=== PATIENT | male | born 1985 | race Caucasian/White ===

== ENCOUNTER 2018-05-11 16:59 | Inpatient (IN) | payer OTHER ==
[~2018-05-11] VITALS: Ht 185.4 cm; Wt 84.8 kg
--- NOTE | 2018-05-11 19:45 | NUR ---
PRE-ADMISSION NOTE The patient is a 32 year male, first time pre-assessment done in intake [facility]. Patient is alert and oriented x 4:Person, Situation, Time, and Place, with stable gait, soft clear speech. Patient is verbally appropriate. Patient reports NKA, denies history of withdrawal induced seizures, denies history of Falls, denies history of blackouts, denies history of SI/HI. Patient reports using alcohol/Vodka PO 375 ml every day for one month, after 120 days his sobriety. Last used 375 ml of Vodka today, on 05/11/2018 at 1500". " First drink used in 2009 for fun with friends", and very easy was addicted. Now, he said, "I can't leaving without drinking because if I am not drinking six hours, I am going to sick: my stomach cramps, I have nausea, vomiting, anxiety, nervousness, "I am going feeling dizziness, headache, and body pains". Patient reports, "I am not using other drugs, only Vodka". Patient did not bring home medications. VS: T: 97'2, HR:103,, RR 18, RA O2 SAT: 95%, pain level:"0/10". Patient is a stable for admission. Policy and rules explained to patient. Patient was educated in admission process. Will to continue admission in the unit.
[2018-05-11 19:59] VITALS: BP 127/86
--- NOTE | 2018-05-11 19:59 | NUR ---
ADMISSION NOTE: The patient is a 32 year male, admitted to [facility] on 05/11/2018 at 1959 for Alcohol withdrawal. Patient is alert and oriented x 4: Person, Situation, Time, and Place, with stable gait, soft clear speech. Patient is verbally appropriate. Patient reports NKA, Regular Diet, is on Full Code, is on Fall and Seizures Precautions. Patient denies history of withdrawal induced seizures, denies history of Falls, denies history of blackouts, denies history of SI/HI. Past Medical History: Anxiety, Depression, Ruptured Disk Surgery on 09/2017. PCP: MD Vic. Patient does not have Psychiatrist. Substance use history: 1.Alcohol: Vodka PO : " First drink used in 2009 for fun with friends, and very easy was addicted. Longest sober was since to February, for 120 days. Recently, I am drinking Vodka 375 ml every day for last month. Last used today 375 ml of Vodka at 1500". Patient describe to me his symptoms when he don't use alcohol, verbalized: "I can't live without drinking because if I have not drank, I am going to feel sick with stomach cramps, nausea, vomiting, anxiety, nervousness, dizziness, headache, and body pains". Patient reports, "I am started smoking 3 years ago: 2-3 cigarettes during the day". Patient was educated in smoking cessation. Patient answered why will this time be different?, "I think this time will be different because today I decided came here to detox myself, I did not have any pressure. I came here today on my own, It was my choice, and I did not had agreement with my . I want to stay sober and start be more productive, start working again. I want to back for adjusted for normal healthiest life style, for keep my marriage, for returning to my job, for be good father for my son". Past Substance Abuse Tx History: 1."[facility]", [place], [place], 10/2017 for 1 week". 2."[facility]", [place], [place], 04/2017 for 30 days". UDS test done, blood labs collected. %Ethyl Alcohol level: 0.16*H. Patient did not bring home medications. VS: T: 97'2, HR:103,, RR 18, RA O2 SAT: 95%, pain level: "0/10". Ht: 73 in, Wt: 187 lb.by standing scale. Respirations are even and unlabored. Patient denies SOB and chest pain. Abdomen is soft and non-tender. Last Bowel Movement was 05/10/2018 at AM. Skin check done: skin is intact, warm, and dry, to touch. Dr. Nolasco aware, and order placed. Patient oriented in unit, policy for VS and CIWA assessment every 4 hours, and how used nursing Call light. Patient was encouraged to fluids intake as tolerated, and to attend groups activities. Safe and calm environment provided. All needs met. Safety measures in place: Call light within reach, bed locked in lowest position, padded bed rails up bilaterally. Report received. Will be monitoring closely.
[2018-05-11] MEDS ORDERED: MAGNESIUM HYDROXIDE 30 ML LIQUID UDC PO PRN (21:30)
[2018-05-11] MEDS ORDERED: ONDANSETRON ODT 4 MG TAB.RAPDIS SL PRN (21:30)
[2018-05-11] MEDS ORDERED: LOPERAMIDE HCL 2 MG CAPSULE PO PRN ×2 (21:30)
[2018-05-11] MEDS ORDERED: THIAMINE HCL 200 MG/2 ML VIAL IM ONE (21:30)
[2018-05-11] MEDS ORDERED: LORAZEPAM 1 MG TABLET PO PRN ×2 (21:30)
[2018-05-11] MEDS ORDERED: LORAZEPAM 2 MG/1 ML VIAL IM PRN (21:30)
[2018-05-11] MEDS ORDERED: diphenhydrAMINE 50 MG CAPSULE PO PRN (21:30)
[2018-05-11] MEDS ORDERED: MIRALAX 17 GM POWD.PACK PO PRN (21:30)
[2018-05-11] MEDS ORDERED: MAG HYDROX/AL HYDROX/SIMETH 30 ML LIQUID UDC PO PRN (21:30)
[2018-05-11] MEDS ORDERED: IBUPROFEN 600 MG TABLET PO PRN (21:30)
[2018-05-11 21:42] LABS: BASOPHILS % (AUTO) 0.5 % (0.0-2.0); EOSINOPHILS # (AUTO) 0.1 K/uL (0.0-0.7); EOSINOPHILS % (AUTO) 0.9 % (0.0-7.0); HEMATOCRIT 47.7 % (36.7-47.1); HEMOGLOBIN 16.3 g/dL (12.5-16.3); LYMPHOCYTES # (AUTO) 3.1 K/uL (20.0-40.0); LYMPHOCYTES % (AUTO) 42.3 % (20.5-51.5); MEAN CORPUSCULAR HEMOGLOBIN 32.4 uug (23.8-33.4); MEAN CORPUSCULAR HGB CONC 34 g/dL (32.5-36.3); MEAN CORPUSCULAR VOLUME 94.8 fL (73.0-96.2); MONOCYTES # (AUTO) 0.6 K/uL (2.0-10.0); MONOCYTES % (AUTO) 8.2 % (0.0-11.0); NEUTROPHILS # (AUTO) 3.5 K/uL (1.8-8.9); NEUTROPHILS % (AUTO) 48.1 % (38.5-71.5); PLATELET COUNT (AUTO) 268 K/uL (152-348); RED BLOOD CELL COUNT(AUTO) 5.03 MIL/uL (4.06-5.63); WHITE BLOOD COUNT (AUTO) 7.2 K/uL (3.6-10.2)
[2018-05-11 21:56] LABS: *AMPHETAMINE, URINE NEGATIVE (NEGATIVE); *BARBITURATE, URINE NEGATIVE (NEGATIVE); *CANNABINOID, URINE NEGATIVE (NEGATIVE); *COCCAINE, URINE NEGATIVE (NEGATIVE); *OPIATE, URINE NEGATIVE (NEGATIVE); *PHENCYCLIDINE SCREEN,URINE NEGATIVE (NEGATIVE)
[2018-05-11 21:59] LABS: BILIRUBIN,TOTAL 0.6 mg/dL (0.2-1.0); CREATININE 1.3 mg/dL (0.6-1.3); MAGNESIUM 2.3 mg/dL (1.8-2.4); POTASSIUM 3.9 mmol/L (3.5-5.1)
[2018-05-11] MEDS: FOLIC ACID 1 MG TABLET PO SCH (21:59)
--- NOTE | 2018-05-11 22:00 | NUR ---
PRN BENADRYL 50 MG 1TABLET PO , PRN ZOFRAN (ONDANSETRON 4 MG TAB.RAPDIS) 4 MG 1 TAB.RAPDIS SL ADMINISTRATION PRN Benadryl 50 mg 1 tablet was administered for insomnia at 2159, PRN Zofran 4 mg SL administered for nausea w/o vomiting at 2200, as ordered. Patient tolerated well. Safe and calm environment provided. All needs met. Safety measures in place: Call light within reach, bed locked in lowest position, padded bed rails up x2. Will to reassess in one hour.
[2018-05-11] MEDS: THIAMINE HCL 100 MG TABLET PO SCH (22:01)
[2018-05-11] MEDS: MULTIVITAMINS,THERAPEUTIC TABLET PO SCH (22:05)
[2018-05-11 22:20] LABS: THYROID STIMULATING HORMONE 1.347 mIU/mL (0.358-3.740)
--- NOTE | 2018-05-11 23:00 | NUR ---
PRN RE-ASSESSMENT Patient is sleeping, on his side. RR:14. Respirations are even and unlabored. PRN Benadryl 50 mg 1 tablet was administered for insomnia at 2158, PRN Zofran 4 mg SL administered for nausea w/o vomiting at 0 was effective. Safe and calm environment provided. All needs met. Safety measures in place: Call light within reach, bed locked in lowest position, padded bed rails up bilaterally. Will be continue to monitor closely. Addendum: 05/12/18 at 0543 by JOSE MARIA MUSE RN PRN Benadryl 50 mg 1 tablet was administered for insomnia at 2158, PRN Zofran 4 mg SL administered for nausea w/o vomiting at 2200 were effective.
[2018-05-12] VITALS (8 sets, daily range): BP systolic 104–144; BP diastolic 72–94
--- NOTE | 2018-05-12 | NUR ---
NO WITHDRAWAL SYMPTOMS NOTED.
--- NOTE | 2018-05-12 03:30 | NUR ---
CIWA=12 CIWA=12 at 0330. Patient presented with anxiety, agitation, irritability, nervousness, palpitation, barely sweating, bilateral tremors that can be felt, but not observe, restlessness and fatigue. PRN Medications will be administered, as ordered. Encouraged to fluids intake as tolerated. Safe and calm environment provided. All needs met. Safety measures in place: Call light within reach, bed locked in lowest position, padded bed rails up x2. Will continue to monitor closely.
[2018-05-12] MEDS: CLONIDINE HCL 0.1 MG TABLET PO PRN (03:36)
--- NOTE | 2018-05-12 03:36 | NUR ---
PRN ATIVAN 1 MG 1TABLET PO, PRN CLONIDINE 0.1 MG 1 TABLET PO ADMINISTRATION PRN Ativan 1 mg PO administered for CIWA=12 at 0335, and PRN Clonidine 0.1 mg PO administered for BP 144/94 at 0336. Patient tolerated well. Safe and calm environment provided. All needs met. Safety measures in place: Call light within reach, bed is locked in lowest position, padded bed rails up x2. Will continue to monitor closely.
--- NOTE | 2018-05-12 04:36 | NUR ---
CIWA =10 Patient noted with anxiety, agitation, nervousness, mild headache, generalized body aches, sweating, bilateral tremors that can be felt, not observe, and restlessness. Safe and calm environment provided. All needs met. Safety measures in place: Call light within reach, bed locked in lowest position, padded bed rails up x2. Will continue to monitor closely.
--- NOTE | 2018-05-12 04:36 | NUR ---
PRN RE-ASSESSMENT Patient is reports ,"Medications help to me, my anxiety decreased, and I want to sleep now". CIWA=10. UI=466/86. PRN Ativan 1 mg PO administered for CIWA=12 at 0335, and PRN Clonidine 0.1 mg PO administered for BP 144/94 at 0336 were effective. Safe and calm environment provided. All needs met. Safety measures in place: Call light within reach, bed locked in lowest position, padded bed rails up bilaterally. Will be continue monitoring closely.
--- NOTE | 2018-05-12 07:23 | NUR ---
END OF SHIFT NOTE: The patient is a 32 year male,admitted to [facility] on 05/11/2018 at 1959 for Alcohol withdrawal. Patient is alert and oriented x 4: Person, Situation, Time, and Place, with stable gait, soft clear speech. Patient reports NKA, Regular Diet, is on Full Code, is on Fall and Seizures Precautions. Patient denies history of withdrawal induced seizures, denies history of Falls,denies history of blackouts, denies history of SI/HI. Patient report Past Medical History: Anxiety, Depression, Ruptured Disk Surgery on 09/2017. Patient admitted intoxicated. First withdrawal symptoms noted at 0330. CIWA=12 at 0330. Last CIWA =10 at 0436. Patient presented with anxiety, agitation, nervousness, tremors, that can be felt, not observe, sweating, flashed face, and clammy skin, fatigue, and restlessness. Encouraged to intake fluids, as tolerated. PRN Benadryl 50 mg 1 tablet was administered for insomnia at 2159, PRN Zofran 4 mg SL administered for nausea w/o vomiting at 2200, PRN Ativan 1 mg PO administered for CIWA=12 at 0335, and PRN Clonidine 0.1 mg PO administered for BP 144/94 at 0336, and were effective. Patient slept for 6 hours, intake 725 ml, voided x2. All needs met. Safe and calm environment provide. Safety measures in place. Safety measures in place: Call light within reach, bed locked in lowest position, padded bed rails up bilaterally. Patient endorsed to day shift nurse.
[2018-05-12] MEDS ORDERED: TUBERCULIN,PURIF.PROT.DERIV. 5 TU/0.1 ML TEST ID ONE (09:00)
[2018-05-12] MEDS ORDERED: 5 DAY TAPER OF LORAZEPAM -SERENITY PROTOCOL PO PRN (09:00)
--- NOTE | 2018-05-12 09:00 | NUR ---
Start of Shift Last CIWA 10 at 0436. Pt will start 5 day Ativan taper today. Pt A&Ox4. He appears disheveled, unshaven, room disorganized with multiple water bottles and wrappers scatted over tables and clothes all over room. Pt c/o headache #4/10, moderate anxiety, sweats, chills, fine tremors. He presents with flat affect, depressed mood, and anhedonia. Encouraged Pt to participate in group activities, socialize with others and identify positive coping skills to maintain sobriety. Fall precautions and all safety measures in place. Side rails up x2. Call light functioning and within reach. All needs attended and met. Will continue to assess for withdrawal symptoms.
--- NOTE | 2018-05-12 09:01 | NUR ---
BRITTNEYWA 12- Pt presents with fine tremors, sweats/chills, moderate anxiety, fatigue, headache #4/10, decreased appetite: ate 50% breakfast, and depression.
[2018-05-12] MEDS: THIAMINE HCL 100 MG TABLET PO SCH (09:23)
[2018-05-12] MEDS: HYDROXYZINE PAMOATE 25 MG CAPSULE PO PRN (09:24)
[2018-05-12] MEDS: MULTIVITAMINS,THERAPEUTIC TABLET PO SCH (09:24)
[2018-05-12] MEDS: FOLIC ACID 1 MG TABLET PO SCH (09:24)
--- NOTE | 2018-05-12 09:30 | NUR ---
PRN Vistaril 50 mg PO for moderate anxiety PRN Ibuprofen 600 mg PO for headache #4/10
[2018-05-12] MEDS: LORAZEPAM 1 MG TABLET PO SCH ×4 (10:11→21:59)
--- NOTE | 2018-05-12 10:30 | NUR ---
Reassess Vistaril- Pt reports anxiety improved. He is resting in bed lying supine with eyes closed. Reassess Ibuprofen- Pt reports headache slightly improved, now #2
--- NOTE | 2018-05-12 12:18 | NUR ---
JAVY 12- Pt presents with fatigue and malaise, moderate anxiety, fine tremors, sweats/chills, he is isolative and has anhedonia. Will continue to administer Valium taper per protocol and PRN medications for withdrawal symptoms.
--- NOTE | 2018-05-12 16:05 | NUR ---
CIWA deferred- Pt asleep on his left side. Resp even and unlabored.
--- NOTE | 2018-05-12 16:44 | NUR ---
BRITTNEYWA 12- Pt presents with flushed face, sweats, chills, malaise, anxiety, fine tremors, he remains isolative and has anhedonia. Will continue to administer Valium taper per protocol and PRN medications for withdrawal symptoms.
--- NOTE | 2018-05-12 18:30 | NUR ---
End of Shift Last CIWA 12 at 1645. Pt started on 5 day Ativan taper today. Pt A&Ox4. He is isolative, has flat affect, depressed mood, is disheveled, odorous and unshaven. Encouraged Pt to shower today, he did not feel up to it. Withdrawal symptoms include flushed face, fatigue, moderate anxiety, sweats, chills, fine tremors, headache, poor appetite, and anhedonia. PRNs given today; Vistaril and Motrin. Encouraged Pt to participate in group activities, socialize with others and identify positive coping skills to maintain sobriety. Pt did not feel well enough today to go to group therapy. PO fluids 1835 ml, Voids X2, no BM. Fall precautions and all safety measures in place. Side rails up x2. Call light functioning and within reach. All needs attended and met. Will continue to assess for withdrawal symptoms. Endorsed to PM shift.
--- NOTE | 2018-05-12 19:15 | NUR ---
Start Of Shift Patient is a 32 yr old male who was admitted to [facility] on 05/11 for a medically supervised withdrawal from ETOH ( Vodka), he has been placed on 5 day Ativan taper and this is day 1. No PRN medication was requested or required on day shift. Currently the patient is in bed asleep, side rails up x2, breathing even and regular. Continue to follow MD plan of care and offer support and encouragement.
--- NOTE | 2018-05-12 22:00 | NUR ---
CIWA 11 Patient presents with bilateral hand tremors, increased anxiety, lethargy, flushed face. Scheduled 2mg PO Ativan given
--- NOTE | 2018-05-13 | NUR ---
CIWA deferred for sleep
[2018-05-13] MEDS: HYDROXYZINE PAMOATE 25 MG CAPSULE PO PRN (02:56)
[2018-05-13] MEDS: CLONIDINE HCL 0.1 MG TABLET PO PRN ×2 (02:56→21:11)
--- NOTE | 2018-05-13 03:00 | NUR ---
PRN Vistaril 50mg PO and Clonidine 0.1mg PO given for increased anxiety and disturbed sleep
[2018-05-13 04:00] VITALS: BP 137/87
--- NOTE | 2018-05-13 04:00 | NUR ---
PRN Reassess Patient asleep in bed, breathing even, call light within reach
--- NOTE | 2018-05-13 04:00 | NUR ---
CIWA 11 Patient presents with bilateral hand tremors, increased anxiety, interrupted sleep, flushed face.
--- NOTE | 2018-05-13 06:53 | NUR ---
End Of Shift Patient is a 32 yr old male who was admitted to [facility] on 05/11 for a medically supervised withdrawal from ETOH ( Vodka), he has been placed on 5 day Ativan taper and this is day 2. PRN medication given on this shift: Vistaril and Clonidine. Patient presents with lethargy, broken sleep, flushed face, diaphoresis and chills. He had a fluid intake of 1000ml, 2 voids and 0 BM, he slept for 6 hours and last CIWA was 11 @ 0400. Currently the patient is in bed asleep, side rails up x2, breathing even and regular. Continue to follow MD plan of care and offer support and encouragement. Endorsed to day shift nurse.
--- NOTE | 2018-05-13 07:42 | NUR ---
Start of Shift Received report from operation shift supervisor. Upon start of shift Pt was in room watching TV eating chips. Last CIWA 11 at 0400. Pt on 5 day Ativan taper(day 2). Pt A&Ox4. He is isolative, has poor eye contact, has flat affect, depressed mood, is disheveled, and unshaven. Encouraged Pt to shower today. Withdrawal symptoms include malaise, anxiety, chills, fine tremors, flushed face, and anhedonia. Pt slept 6 hours last night. Encouraged Pt to participate in group activities, socialize with others and identify positive coping skills to maintain sobriety. Fall precautions and all safety measures in place. Side rails up x2. Call light functioning and within reach. All needs attended and met. Will continue to assess for withdrawal symptoms.
[2018-05-13 08:00] VITALS: BP 140/81
--- NOTE | 2018-05-13 08:05 | NUR ---
[facility] 12- Pt c/o malaise, moderate anxiety, agitation, restless legs, chills, fine tremors, flushed face, and anhedonia.
[2018-05-13] MEDS: FOLIC ACID 1 MG TABLET PO SCH (08:35)
[2018-05-13] MEDS: THIAMINE HCL 100 MG TABLET PO SCH (08:35)
[2018-05-13] MEDS: LORAZEPAM 1 MG TABLET PO SCH ×3 (08:35→20:24)
[2018-05-13] MEDS: MULTIVITAMINS,THERAPEUTIC TABLET PO SCH (08:36)
[2018-05-13 11:06] LABS: HEPATITIS B SURFACE AG Negative (Negative)
[2018-05-13 12:00] VITALS: BP 133/85
--- NOTE | 2018-05-13 12:10 | NUR ---
CIWA 12- Pt presents with moderate anxiety, agitation, fatigue, chills, and fine tremors. Pt has avoidant eye contact, with isolative/withdrawn and has anhedonia.
--- NOTE | 2018-05-13 13:03 | NUR ---
Therapist prompted client to attend group therapy.
[2018-05-13 16:00] VITALS: BP 136/83
--- NOTE | 2018-05-13 16:17 | NUR ---
WA 12- Pt exhibits anhedonia, moderate anxiety, malaise, chills, and fine tremors. Pt remains isolative and withdrawn. Encouraged him to attend group therapy, but he is not felling well enough to attend.
--- NOTE | 2018-05-13 18:44 | NUR ---
End of Shift Last CIWA 12 at 1600. Pt continues on 5 day Ativan taper(day 2). Pt A&Ox4. He is isolative, withdrawn, guarded, avoidant eye contact, has flat affect, flat affect, depressed mood, disheveled, and unshaven. Pt c/o malaise, anxiety, chills, fine tremors, he has flushed face, and anhedonia. No PRN given today. Encouraged Pt to participate in group activities, socialize with others and identify positive coping skills to maintain sobriety. PO fluids 1500ml, voids x2, BMx1. Fall precautions and all safety measures in place. Side rails up x2. Call light functioning and within reach. All needs attended and met. Will continue to assess for withdrawal symptoms. Endorsed to PM shift.
--- NOTE | 2018-05-13 19:15 | NUR ---
Start Of Shift: Patient is a 32 yr old male who was admitted to [facility] on 05/11/18 for a medically supervised withdrawal from ETOH ( Vodka), he has been placed on a 5 day Ativan taper and this is day 2. No PRN medications were required or requested on day shift, last CIWA was 12 @1600. Per report he has been isolative to his room most of the day. At this time he is asleep in bed with eyes closed, breathing even. Continue to follow MD plan of care and offer support and encouragement.
[2018-05-13 20:00] VITALS: BP 145/87
[2018-05-13] MEDS: TRAZODONE 50 MG TABLET PO PRN (20:24)
--- NOTE | 2018-05-13 20:25 | NUR ---
PRN Trazodone 50mg PO given per request for sleep, will reassess
--- NOTE | 2018-05-13 21:11 | NUR ---
PRN Clonidine 0.1mg PO given for reports of increased agitation and anxiety, will reassess
--- NOTE | 2018-05-13 21:25 | NUR ---
PRN Reassess Patient states that he is feeling drowsy and ready to go to sleep, continue to monitor
--- NOTE | 2018-05-13 21:30 | NUR ---
CIWA 13 patient presents with anhedonia, lethargy,restlessness, diaphoresis, decreased appetite and increased anxiety and irritability. Scheduled 2mg Ativan PO given and PRN trazodone and Clonidine.
--- NOTE | 2018-05-13 22:11 | NUR ---
PRN Reassess patient is asleep in bed , breathing even and unlabored, side rails up x2, call light within reach
--- NOTE | 2018-05-14 | NUR ---
CIWA CIWA deferred due to sleep. Vitals refused per patient request to be able to sleep uninterrupted through the night. Breathing even and unlabored , RR14, call light within reach
[2018-05-14] MEDS: HYDROXYZINE PAMOATE 25 MG CAPSULE PO PRN (02:27)
[2018-05-14 02:30] VITALS: BP 140/102
--- NOTE | 2018-05-14 02:30 | NUR ---
PRN Vistaril 50mg PO given for reports of inability to stay asleep and anxiety. Clonidine 0.1mg PO given for anxiety and BP 140/102 will reassess
--- NOTE | 2018-05-14 02:30 | NUR ---
CIWA 13 Patient presents with increased blood pressure, 140/102, inability to stay asleep, increased anxiety, diaphoresis and racing thoughts. PRN Vistaril 50mg PO and Clonidine 0.1mg PO given
[2018-05-14] MEDS: CLONIDINE HCL 0.1 MG TABLET PO PRN (02:31)
--- NOTE | 2018-05-14 03:30 | NUR ---
PRN Reassess BP 136/87 , Patient is sleeping Vistaril and Clonidine effective
[2018-05-14 04:00] VITALS: BP 138/87
--- NOTE | 2018-05-14 04:00 | NUR ---
CIWA CIWA deferred, patient is asleep at this time.
--- NOTE | 2018-05-14 06:42 | NUR ---
End Of Shift Patient is a 32 yr old male who was admitted to [facility] on 05/11 for a medically supervised withdrawal from ETOH ( Vodka), he has been placed on 5 day Ativan taper and this is day 3. PRN medication given on this shift: Trazodone, Vistaril and Clonidine x2. Patient presents with lethargy, broken sleep, flushed face, increased anxiety, increased blood pressure, diaphoresis and chills. He had a fluid intake of 500ml, 1 voids and 0 BM, he slept for 7 hours and last CIWA was 13 @ 0230. Currently the patient is in bed asleep, side rails up x2, breathing even and regular. Continue to follow MD plan of care and offer support and encouragement. Endorsed to day shift nurse.
--- NOTE | 2018-05-14 07:40 | NUR ---
START OF SHIFT NOTE Received report from night nurse, 32 year old male admitted for ETOH withdrawal. Patient continues with her 5 days Ativan taper tolerating-p0 well. Per endorsement patient was given PRN Trazodone,Clonidine x2, Vistaril, effective per night nurse, slept for 7 hours and last CIWA was-13. Received patient alert awake oriented x4, presented with labile facial expression,anxious, agitated, restless, patient is due for schedule medications. Skin intact warm and dry to touch. No s/s of distress noted. All safety measures in place. Will cont with plan of care.
[2018-05-14 07:41] LABS: BILIRUBIN,DIRECT 0.1 mg/dL (0.0-0.2); BILIRUBIN,TOTAL 0.3 mg/dL (0.2-1.0); TOTAL PROTEIN, SERUM 6.6 g/dL (6.4-8.2)
[2018-05-14 08:00] VITALS: BP 139/99
[2018-05-14] MEDS: FOLIC ACID 1 MG TABLET PO SCH (08:18)
[2018-05-14] MEDS: THIAMINE HCL 100 MG TABLET PO SCH (08:18)
[2018-05-14] MEDS: LORAZEPAM 1 MG TABLET PO SCH ×4 (08:18→21:38)
[2018-05-14] MEDS: MULTIVITAMINS,THERAPEUTIC TABLET PO SCH (08:18)
--- NOTE | 2018-05-14 08:18 | NUR ---
CIWA ASSESSMENT CIWA score noted -12. Patient presented with labile facial expression and stated increased in anxiety, agitation, restless, anhedonia, irritability, diaphoresis, bilateral hand tremors. Patient was given his scheduled medications. All safety measures in place.
[2018-05-14 12:00] VITALS: BP 133/90
--- NOTE | 2018-05-14 12:00 | NUR ---
CIWA ASSESSMENT CIWA score noted -11. Patient continues to exhibits s/s of withdrawal such as anxiety, agitation, restless, anhedonia, irritability, diaphoresis, bilateral hand tremors. Patient was given his schedule medications. All safety measures in place.
--- NOTE | 2018-05-14 12:11 | NUR ---
Therapist prompted client to attend all group therapy sessions.
[2018-05-14 16:00] VITALS: BP 150/99
--- NOTE | 2018-05-14 16:40 | NUR ---
CIWA ASSESSMENT CIWA score noted -13. Patient continues to exhibits s/s of withdrawal such as labile facial expression, fatigue, dysphoria, increased pulse, anxiety, agitation, restless, bilateral hand tremors. Patient was given his schedule medications. All safety measures in place.
--- NOTE | 2018-05-14 19:22 | NUR ---
END OF SHIFT NOTE Gave report to night nurse, 32 year old male admitted for ETOH withdrawal. Patient continues on Ativan taper tolerating well. Patient presented with blunt facial expression, diaphoresis, anhedonia, anxiety, agitation, restless, fatigue, light headed, sweats, bilateral hand tremors. Patient was given scheduled medications. Patient did not request for any PRN'S. Patient denies any SI/HI. Vital signs WNL. Patient noted attending groups and activities. Encourage PO fluids as tolerated. Last CIWA score was -13. All safety measures in place, call light within reach. Patient endorse to night nurse in stable condition.
[2018-05-14 20:00] VITALS: BP 129/84
--- NOTE | 2018-05-14 20:00 | NUR ---
Start of Shift Patient observed to be melancholic and in depressed mood, verbalized feeling "tired". Patient noted to be increasingly anxious, with anhedonia, mild nausea, flushed and moist skin on face and with bilateral hand tremors. Patient on 5-day Ativan taper, to continue. With PRN meds for withdrawal symptoms. Fall, universal, seizure and safety prec in place. Call light within reach. Latest CIWA=11. Will continue to monitor.
[2018-05-14] MEDS: TRAZODONE 50 MG TABLET PO PRN (21:40)
--- NOTE | 2018-05-14 21:41 | NUR ---
PRN Trazodone Patient verbalized "I cannot sleep." Trazodone 50 mg PO PRN administered as ordered. Will reassess.
--- NOTE | 2018-05-14 22:41 | NUR ---
Trazodone reassess Patient asleep on bed, no facial grimacing nor SOB noted.
[2018-05-15] VITALS (7 sets, daily range): BP systolic 107–146; BP diastolic 65–97
[2018-05-15] MEDS: CLONIDINE HCL 0.1 MG TABLET PO PRN ×2 (02:04→20:18)
[2018-05-15] MEDS: HYDROXYZINE PAMOATE 25 MG CAPSULE PO PRN (02:04)
--- NOTE | 2018-05-15 02:05 | NUR ---
PRN Clonidine and Vistaril Patient c/o increasing anxiety and observed to be easily agitated. JF=033/91, pulse=93. Administered Clonidine 0.1 mg PO PRN and Vistaril 50 mg PO PRN. Will reassess.
--- NOTE | 2018-05-15 03:05 | NUR ---
Clonidine and Vistaril reassess Patient asleep on bed, with no facial grimacing nor SOB noted.
--- NOTE | 2018-05-15 04:00 | NUR ---
CIWA=8 Patient with intermittent anxiety, tremors and appears flushed. Patient continues to c/o "fatigue". Will continue to monitor.
--- NOTE | 2018-05-15 07:25 | NUR ---
End of Shift Patient continues to present with anhedonia and appears melancholic and isolative. Patient continues to be flushed, with sweating and tremors. Encouraged patient to take a shower this morning as he is disheveled and unkempt. Fall, universal, seizure and safety prec in place. Call light within reach. Latest CIWA=8 and slept for 8 hours. Endorsed to AM shift nurse for continuity of care.
--- NOTE | 2018-05-15 07:59 | NUR ---
START OF SHIFT NOTE Received report from night nurse, 32 year old male admitted for ETOH withdrawal. Patient continues with her 5 days Ativan taper tolerating-p0 well. Per endorsement patient was given PRN Clonidine, Vistaril, effective per night nurse, slept for 8 hours and last CIWA was-8. Received patient alert awake oriented x4, patient reported feeling anxious and wanted to go for smoking. patient is due for schedule medications. Skin intact warm and dry to touch. No s/s of distress noted. All safety measures in place. Will cont with plan of care.
[2018-05-15] MEDS: FOLIC ACID 1 MG TABLET PO SCH (08:13)
[2018-05-15] MEDS: LORAZEPAM 1 MG TABLET PO SCH ×3 (08:13→20:17)
[2018-05-15] MEDS: MULTIVITAMINS,THERAPEUTIC TABLET PO SCH (08:13)
[2018-05-15] MEDS: THIAMINE HCL 100 MG TABLET PO SCH (08:13)
--- NOTE | 2018-05-15 08:13 | NUR ---
CIWA ASSESSMENT CIWA score noted -13. Patient presented with labile facial expression, unkempt, anxious, agitated, restless, anhedonia, irritability, diaphoresis, bilateral hand tremors. Patient was given his scheduled medications. All safety measures in place.
--- NOTE | 2018-05-15 08:51 | NUR ---
Therapist prompted client to attend group therapy.
--- NOTE | 2018-05-15 14:00 | NUR ---
CIWA ASSESSMENT CIWA score noted -12. Patient continues to exhibits s/s of withdrawal such as sad facial expression, anxiety, agitation, restless, irritability, diaphoresis, bilateral hand tremors. Patient was given his schedule medications. All safety measures in place.
--- NOTE | 2018-05-15 16:00 | NUR ---
CIWA ASSESSMENT CIWA score noted -11. Patient reported s/s of withdrawal such as anxiety, agitation, restless, irritability, sweats, bilateral hand tremors. All safety measures in place.
--- NOTE | 2018-05-15 19:14 | NUR ---
END OF SHIFT NOTE Gave report to night nurse, Patient admitted for ETOH withdrawal and continues with his Ativan taper tolerating well. Patient received his scheduled medications patient did not request for any PRN medications. Patient presented with flushed face, avoidant eye contact, anhedonia, anxiety, agitation, restless, fatigue, bilateral hand tremors. Patient noted attending groups activities and interacting with peers. Patient was encouraged adequate PO fluid intake as tolerated, patient encouraged to develop coping skills and utilization of non pharmacological interventions. Encouraged patient to participates in groups activities. Vital signs WNL. Patient denies any SI/HI. All needs attended. Endorse care to night nurse.
--- NOTE | 2018-05-15 20:00 | NUR ---
Start of Shift Patient verbalized missing his and son. Patient continues to be melancholic and in depressed mood. Patient is avoiding conversation and presents with anhedonia. Patient with anxiety, flushed and moist skin on face and with bilateral hand tremors. Patient continues to be on a 5-day Ativan taper. Provided education on Progressive Muscle Relaxation. Fall, universal, seizure and safety prec in place. Call light within reach. Latest CIWA=10. Will continue to monitor.
[2018-05-15] MEDS: TRAZODONE 50 MG TABLET PO PRN (20:17)
--- NOTE | 2018-05-15 20:19 | NUR ---
PRN Clonidine and Trazodone Patient with elevated UR=196/97 and c/o inability to sleep. Administered Clonidine 0.1 mg PO PRN and Trazodone 50 mg PO PRN. Will reassess.
--- NOTE | 2018-05-15 21:20 | NUR ---
Clonidine and Trazodone reassess Patient's BP iygxonp=335/62, Pulse=72. Patient is on bed and verbalized feeling sleepy now.
[2018-05-16] VITALS: BP 111/64
--- NOTE | 2018-05-16 | NUR ---
CIWA=9 Patient continues to present with anhedonia and avoiding conversation. Patient c/o feeling tired, with tremors and intermittent anxiety. Also, patient with hypoactive body movement.
--- NOTE | 2018-05-16 | NUR ---
CIWA CIWA deferred. Pt laying in bed eyes closed and resting. Continue to monitor.
[2018-05-16] MEDS: HYDROXYZINE PAMOATE 25 MG CAPSULE PO PRN ×3 (01:48→17:57)
--- NOTE | 2018-05-16 01:49 | NUR ---
PRN Vistaril Patient woke up and c/o feeling increasingly anxious. Administered Vistaril 50 mg PO PRN. Will reassess.
--- NOTE | 2018-05-16 02:50 | NUR ---
Vistaril reassess Patient verbalized feeling less anxious and would want to continue his sleep.
[2018-05-16 04:00] VITALS: BP 129/84
--- NOTE | 2018-05-16 04:00 | NUR ---
CIWA=9 Patient continues to have intermittent anxiety, with anhedonia and hypotensive movement. Patient with flushed skin.
[2018-05-16] MEDS: CLONIDINE HCL 0.1 MG TABLET PO PRN ×3 (04:34→17:57)
--- NOTE | 2018-05-16 04:35 | NUR ---
PRN Clonidine Patient c/o increasing anxiety, easily gets agitated and with tremors. Administered Clonidine 0.1 mg PO PRN. Will reassess.
--- NOTE | 2018-05-16 05:35 | NUR ---
Clonidine reassess Patient verbalized that anxiety level has decreased.
--- NOTE | 2018-05-16 07:15 | NUR ---
End of Shift Patient continues to be melancholic and keeps to himself. Patient continues to have intermittent anxiety and with sweating and tremors. Patient verbalized experiencing "some sort of cravings" from time to time. Fall, universal, seizure and safety prec in place. Call light within reach. Latest CIWA=9 and slept for 8 hours. Endorsed to AM shift nurse for continuity of care.
--- NOTE | 2018-05-16 07:30 | NUR ---
Start Of Shift: Patient is a 32 yr old male who was admitted to [facility] on 05/11/18 for a medically supervised withdrawal from ETOH ( Vodka), he has been placed on a 5 day Ativan taper and this is day 5. PRN medications given on shift : Clonidine x2, Vistaril and Trazodone, last CIWA was 9 and he slept for 8 hrs. Per report he has been isolative to his room most of the time. At this time he is in bed awake and voices that he has no withdrawal symptoms and would like to leave to go home today, will pass request to case management associate. Continue to follow MD plan of care and offer support and encouragement.
[2018-05-16 08:00] VITALS: BP 109/71
--- NOTE | 2018-05-16 08:00 | NUR ---
CIWA 10 Withdrawal symptoms present as warm clammy skin, increased anxiety, interrupted sleep, he has a sad flat depressed affect. Schedule Ativan 1mg PO to be given.
[2018-05-16] MEDS: MULTIVITAMINS,THERAPEUTIC TABLET PO SCH (08:31)
[2018-05-16] MEDS: THIAMINE HCL 100 MG TABLET PO SCH (08:31)
[2018-05-16] MEDS: FOLIC ACID 1 MG TABLET PO SCH (08:31)
[2018-05-16] MEDS: LORAZEPAM 1 MG TABLET PO SCH ×2 (08:31→21:50)
[2018-05-16 12:00] VITALS: BP 134/91
--- NOTE | 2018-05-16 12:00 | NUR ---
CIWA 10 Withdrawal symptoms present as warm clammy skin, increased anxiety, increased heart rate ( 118), he has a sad flat depressed affect. PRN Clonidine and Vistaril will be given
--- NOTE | 2018-05-16 12:16 | NUR ---
PRN Vistaril 50mg PO and Clonidine 0.1mg PO given for increased anxiety/agitation will reassess
--- NOTE | 2018-05-16 12:20 | NUR ---
Therapist prompted client to attend all group therapy sessions.
--- NOTE | 2018-05-16 13:15 | NUR ---
PRN Reassess HR 90, patient states he feels less anxious, PRN Vistaril and Clonidine effective
[2018-05-16 16:00] VITALS: BP 140/90
--- NOTE | 2018-05-16 16:00 | NUR ---
CIWA 11 Withdrawal symptoms present as warm clammy skin, increased anxiety, increased BP, intermittent tachycardia, he has a sad flat depressed affect.
--- NOTE | 2018-05-16 19:40 | NUR ---
Start of Shift Note Received 32 year old male admitted to [facility] for medically supervised withdrawal from ETOH on 05/11/18. Pt on day 5 of a 5 day Ativan taper. Per endorsement, pt seen and evaluated by MD received orders for Trazodone to be discontinued and will start Seroquel 50mg. Pt received PRN Clonidine X 2 and Vistaril X2. Last CIWA 11 @1600. Pt is awake, alert, flat affect, withdrawn, flushed and states he is anxious, verbalizes he would like to go home and he misses his . Safety measures in use. Will continue to monitor.
--- NOTE | 2018-05-16 19:41 | NUR ---
End Of Shift : Patient is a 32 yr old male who was admitted to [facility] on 05/11/18 for a medically supervised withdrawal from ETOH ( Vodka ), he has been placed on a 5 day Ativan taper and today is day 5. Patient is isolative to his room but has attended groups today, his withdrawal symptoms include Tachycardia , intermittent hypertension, increased anxiety and Anhedonia, he has a sad depressed affect. PRN medications given on this shift: Clonidine 0.1mg PO x2 and Vistaril 50mg PO x2 for anxiety/agitation. He had a fluid intake of 2100ML, 4 Voids and 1 BM and his last CIWA was 11 @ 1600. Continue to follow MD plan of care and offer support as needed. Endorsed to restaurant shift leader nurse.
[2018-05-16 20:08] VITALS: BP 130/79
[2018-05-16] MEDS: QUETIAPINE FUMARATE 25 MG TABLET PO PRN (21:50)
--- NOTE | 2018-05-16 21:50 | NUR ---
PRN Seroquel Pt complains of difficulty sleeping. Requested Seroquel. Medication given per MD order. Continue with safety measures and will assess effectiveness.l
--- NOTE | 2018-05-16 22:50 | NUR ---
PRN Seroquel Reassess Pt laying in bed resting with eyes closed. Respirations even and unlabored. Safety measures in use. Will continue to monitor.
--- NOTE | 2018-05-17 | NUR ---
Vitals Refused patient is noted in bed sleeping. Breathing even and non labored. vitals refused. CIWA not able to be completed as per order. no restlessness or facial grimacing noted. Will continue to monitor.
[2018-05-17 01:25] VITALS: BP 110/78
[2018-05-17] MEDS: HYDROXYZINE PAMOATE 25 MG CAPSULE PO PRN ×3 (01:30→20:51)
[2018-05-17] MEDS: CLONIDINE HCL 0.1 MG TABLET PO PRN ×2 (01:30→12:22)
--- NOTE | 2018-05-17 01:31 | NUR ---
PRN medication Administration Patient is noted awake and verbalizing increased chills, sweats, anxiety, restlessness and agitation. PRN Clonidine and Vistaril administered. Will continue to monitor.
--- NOTE | 2018-05-17 02:30 | NUR ---
PRN Medication Reassessment Patient is noted in bed sleeping. Breathing even and non labored. No restlessness or facial grimacing noted. patient received PRN Clonidine and Vistaril noted to be effective. Will continue to monitor.
--- NOTE | 2018-05-17 04:00 | NUR ---
Vitals Refused Patient is noted in bed sleeping. Breathing even and non labored. Vitals refused. CIWA not able to be completed as per order. No restlessness or facial grimacing noted.
--- NOTE | 2018-05-17 06:29 | NUR ---
End of Shift Note Pt is 32 year old male admitted to [facility] for medically supervised withdrawal from ETOH on 05/11/18. Pt completed 5 day Ativan taper. Pt continued with flat affect, withdrawn, isolative, flushed and states he is anxious. Pt complained of difficulty sleeping and requested PRN Seroquel. Dose given per MD order with positive effect. CIWA 8 @2000. Intake of 946 ml, voided x 3, BM X 0, and slept X 8 hours. Safety measures in use. Endorsed care to day shift.
--- NOTE | 2018-05-17 07:30 | NUR ---
START OF SHIFT Pt 32 y/o male admitted for etoh withdrawal. Pt received in room on bed with eyes closed resting. Alert and oriented to name, place, and time. P[place]. Skin warm and moist to touch. Respirations even and unlabored. Appears disheveled and unkempt. Clothes scattered throughout the room. Encouraged to maintain hygiene. Anxious and restless. pressured speech. Bilateral hand tremors. Complaints of generalized discomfort. It was reported that pt slept for 7 hours last night. Last ciwa=8 @1999. Pt completed a 5 day ativan taper. Bed on lowest position with side rails x2 up for safety. Call light within reach.
[2018-05-17 08:00] VITALS: BP 120/82
--- NOTE | 2018-05-17 08:00 | NUR ---
CIWA ASSESSMENT ciwa=10. Anxious and restless. Pressured speech noted. Bilateral hand tremors. Short abrupt responses. Easily irritable and agitated this morning.
[2018-05-17] MEDS: THIAMINE HCL 100 MG TABLET PO SCH (08:52)
[2018-05-17] MEDS: MULTIVITAMINS,THERAPEUTIC TABLET PO SCH (08:52)
[2018-05-17] MEDS: FOLIC ACID 1 MG TABLET PO SCH (08:52)
--- NOTE | 2018-05-17 09:40 | NUR ---
PRN VISTARIL Pt states feels anxious. Restless and irritable. Short abrupt responses. Vistaril po prn per MD order given and tolerated well.
--- NOTE | 2018-05-17 10:33 | NUR ---
ENDORSEMENT pt endorsed to nurse. All information given.
--- NOTE | 2018-05-17 10:35 | NUR ---
Rcvd endorse from am nurse for continuity of care. client is in room, a/o x 4. Client completed 5 yanick Ativan taper. Last CIWA 10 @ 0800. PRN Vistaril 50mg Po for anxiety, noted effective. Encourage client to attend group therapy to learn skills to maintain sober. Call light within reach.
[2018-05-17 12:17] VITALS: BP 139/92
--- NOTE | 2018-05-17 12:22 | NUR ---
CIWA 7 Client presents with agitation and anxiety mb increased BP 139/92 P 94. PRN Clonidine 0.1mg PO administered. Call light within reach.
[2018-05-17] MEDS ORDERED: QUET25TA PO (13:13)
[2018-05-17] MEDS ORDERED: CLON0.1T14 PO (13:13)
[2018-05-17] MEDS ORDERED: HYDR-3895 PO (13:13)
--- NOTE | 2018-05-17 13:22 | NUR ---
Reassess PRN Clonidine 0.1mg, client reports feeling less agitated and less anxious BP 125/84 P 87.
[2018-05-17 16:00] VITALS: BP 129/83
--- NOTE | 2018-05-17 16:10 | NUR ---
CIWA 6 Client continues to present with anxiety and agitation. Client refused PRN medication at this time. Call light within reach.
--- NOTE | 2018-05-17 19:20 | NUR ---
END OF SHIFT Endorse client to incoming nurse, client is in room, a/o x 4. Client continues to present with anxiety, decreased appetite, and fatigue. Last CIWA 6 @ 1600. Client completed 5 day Ativan paper. Adequate PO fluid intake 3600mL, void x 5, stool x 2. Encouragement needed to attend group therapy. Consumes 75% of meals. Call light within reach.
--- NOTE | 2018-05-17 19:30 | NUR ---
Start of Shift Patient Received. Patient is noted in his bed, awake, alert and verbally responsive. Breathing even and non labored. Per endorsement, patient has completed a 5 day Ativan taper and is set for discharge tomorrow 05/18/18. Patient was noted to be isolative to room and only participating in smoking breaks. Patient received PRN Vistaril and Clonidine with medication noted to be effective. Last noted CIWA 6. Upon rounds, patient is noted to be isolative, disheveled, flat, with depressed affect. All needs attended to promptly. Will continue plan of care as ordered.
[2018-05-17 20:00] VITALS: BP 126/72
--- NOTE | 2018-05-17 20:55 | NUR ---
PRN Medication Administration Patient is verbalizing increased anxiety and verbalizes "Im just really excited to see my ." PRN Vistaril administered. Will continue to monitor.
--- NOTE | 2018-05-17 21:50 | NUR ---
PRN Medication Reassessment Patient is noted awake and returning from smoke patio. Patient is able to verbalize medication was effective in minimizing anxiety. PRN Vistaril noted effective. Will continue to monitor.
[2018-05-17] MEDS: QUETIAPINE FUMARATE 25 MG TABLET PO PRN (23:23)
--- NOTE | 2018-05-17 23:23 | NUR ---
PRN Medication Administration Patient is noted verbalizing inability of falling asleep. PRN Seroquel administered. Will continue to monitor.
--- NOTE | 2018-05-18 00:30 | NUR ---
PRN Medication Reassessment patient is noted in bed with eyes closed. Breathing even and non labored. No signs of restlessness or discomfort noted. Patient received PRN Seroquel for sleep with medication noted effective. Vitals refused. CIWA not able to be completed as per order. Will continue to monitor. Addendum: 05/18/18 at 0051 by MODESTA PA LVN Vitals Refused
--- NOTE | 2018-05-18 04:00 | NUR ---
Vitals Refused Patient is noted in bed sleeping. Breathing even and non labored. No restlessness or discomfort noted. Patient refused vitals. CIWA not able to be completed as per order. All needs attended to promptly. Will continue plan of care as ordered.
--- NOTE | 2018-05-18 07:07 | NUR ---
End of Shift Patient is in bed sleeping, but easily arouse to verbal stimuli. Breathing even and non labored. Patient has completed a 5 day Ativan taper and is set for discharge today 05/18/18. Patient received PRN Vistaril and Seroquel with medication noted to be effective. Last noted CIWA 4. Patient noted to sleep a total of 7 hours. All needs attended to promptly. Will continue plan of care as ordered.
--- NOTE | 2018-05-18 07:35 | NUR ---
START OF SHIFT Endorse rcvd from ongoing nurse, client is in bed, lying on his L side, a/o x 4. Client reports feeling somewhat anxious and agitated because of his discharge this morning to [facility]. Discuss discharge instructions with client, he verbalized understanding. Client was admitted to [facility] for alcohol withdrawal. He completed 5 day Ativan taper. Last CIWA 4 @ 1999. PRN Vistaril 50mg PO for anxiety, Seroquel 50mg PO for sleep, client slept 7 hrs. Seizure precautions rendered. Call light within reach.
[2018-05-18 08:07] VITALS: BP 124/88
[2018-05-18] MEDS: MULTIVITAMINS,THERAPEUTIC TABLET PO SCH (08:55)
--- NOTE | 2018-05-18 08:55 | NUR ---
PRN Clonidine 0.1mg for agitation and Vistaril 50mg PO for anxiety. Client presents with anxious mood, flat affect. He stated, "I am just anxious because I have to start all over again with my program and I do not want to stay away from my and 5 year old kid any longer." Call light within reach.
[2018-05-18 08:56] VITALS: BP 124/88
[2018-05-18] MEDS: HYDROXYZINE PAMOATE 25 MG CAPSULE PO PRN (08:56)
[2018-05-18] MEDS: FOLIC ACID 1 MG TABLET PO SCH (08:56)
[2018-05-18] MEDS: CLONIDINE HCL 0.1 MG TABLET PO PRN (08:56)
[2018-05-18] MEDS: THIAMINE HCL 100 MG TABLET PO SCH (08:56)
--- NOTE | 2018-05-18 09:48 | NUR ---
Discharge note Client is in stable condition. reassess PRN Clonidine 0.1mg & Vistaril 50mg PO client reports relief from agitation and anxiety. He left [facility] with personal items. To [facility] via private care.
== END 2018-05-18 09:48 | disposition home or self-care (01) | DRG 895 ==
LOC: SRC 19:04
PROVIDERS: ADMIT Family Medicine Addiction Medicine; ATTEND Family Medicine Addiction Medicine
PROC: HZ2ZZZZ Detoxification Services for Substance Abuse Treatment (ICD-10-PCS; principal; 2018-05-11)
PROC: HZ31ZZZ Individual Counseling for Substance Abuse Treatment, Behavioral (ICD-10-PCS; 2018-05-13)
PROC: HZ41ZZZ Group Counseling for Substance Abuse Treatment, Behavioral (ICD-10-PCS; 2018-05-14)
DX: F10.230 Alcohol dependence with withdrawal, uncomplicated (principal); Y90.6 Blood alcohol level of 120-199 mg/100 ml; G89.29 Other chronic pain; M51.27 Other intervertebral disc displacement, lumbosacral region; Z81.1 Family history of alcohol abuse and dependence; F17.210 Nicotine dependence, cigarettes, uncomplicated; G47.00 Insomnia, unspecified; F41.9 Anxiety disorder, unspecified; R74.0 Nonspecific elevation of levels of transaminase and lactic acid dehydrogenase [LDH]; F32.9 Major depressive disorder, single episode, unspecified
CPT/HCPCS: 36415; 70030-TC; 80307; 83690; 83735; 84443; 85025; 86580; 86592; 86705; 86803; 87340; 87806; A4663; G0480; J3411; Q0162; Q0163